=== PATIENT | male | born 1940 | race Caucasian/White ===

== ENCOUNTER 2018-07-15 19:55 | Inpatient (IN) ==
[2018-07-15] MEDS ORDERED: POLYETHYLENE (MIRALAX) 17 GM PACK PO PRN (23:20)
[2018-07-15] MEDS ORDERED: ACETAMINOPHEN 325 MG TAB PO PRN (23:20)
[2018-07-15] MEDS ORDERED: PIPERACILL/TAZOBAC CONSULT ACTIVE PRN (23:33)
[2018-07-15] MEDS ORDERED: PIPERACILLIN/TAZOBACTAM 4.5 GM in DEXTROSE 5% 100 ML IV SCH (23:45)
[2018-07-15] MEDS ORDERED: PATIENT'S HEIGHT AND/OR WEIGHT NEEDED SCH (23:45)
--- NOTE | 2018-07-16 00:28 | History & Physical Report ---
Date of Service July 16, 2018 Assessment & Plan (1) Left otitis externa: 77-year-old male with past medical history of COPD, diabetes, hypertension presents with suspected left otitis externa and Agudelo's palsy from [facility]. Left otitis externa Reviewed CT report from [place] which was only significant for nonspecific soft tissue swelling in the vicinity of the left ear Received 2 doses of Zosyn and Decadron at [place] We will continue coverage for Pseudomonas with IV Zosyn tonight, although I think the patient can be quickly transitioned to oral medications such as Cipro. Patient is also receiving Ciprodex drops in addition to IV antibiotics. Pain controlTylenol 650 every 6 Agudelo's palsy Secondary to left-sided inflammation No additional focal neuro deficits and CT was negative for signs of stroke Diabetes Holding home metformin and glipizide Ordered sliding scale insulin COPD Holding home Spiriva and Symbicort Duo nebs 4 times daily, Flovent twice daily Continue theophyllinepatient takes 200 mg twice daily Hypertension Continue HCTZ and metoprolol FEN Heart healthy diet, diabetic diet DVT prophylaxis Heparin CODE STATUS Full code without intubation (2) Agudelo's palsy: (3) HTN (hypertension): (4) Diabetes: (5) COPD (chronic obstructive pulmonary disease): History of Present Illness Primary Care Provider: NO PCP 77-year-old male with past medical history of diabetes mellitus, COPD on 2 L presents from [facility] emergency room with a suspected left ear infection and Agudelo's palsy. He describes that his symptoms started as a headache last Thursday--on the left temporal aspect and slowly progressed to pain surrounding his left ear. He states that he has had some discharge out of his left ear and muffled hearing beginning on Thursday. He has never had issues like this before, but thought he was simply experiencing a ear infection and decided to apply Neosporin ointment. Shortly before coming to the emergency room, the patient began to experience left-sided facial weakness which included difficulty blinking his left eye, trouble with fluids leaking out of his left mouth. He denies any issues with speech, strength, gait, sensation. He denies any other focal neurologic deficits. Social historylives at home with his . Patient denies smoking, alcohol use, drug use Past medical history includeshypertension, diabetes, COPD, hyperlipidemia Allergiescodeine Allergies Allergy/AdvReac Type Severity Reaction Status Date / Time codeine Allergy Unknown Verified 07/15/18 23:15 Past Med/Surg History Social History Preferred Language: Bahraini Communication Ability: Effective Outpatient Phlebotomist Required: No Beliefs That Will Affect Care: None Current Living Situation: Spouse Feels Safe at Home: Yes Safety Concerns: Feels Safe At This Time Smoking Status: Unknown if ever smoked Hx Alcohol Use: Yes Alcohol type: wine Hx Substance Use: No Physical Exam Eyes: PERRL, conjunctivae normal, anicteric sclerae ENMT: Ears: + external ear abnormality (Left external earSwelling and erythema, External canal is erythematous ) Neck: trachea midline, no thyromegaly Left cervical LAD Respiratory: normal respiratory effort, lungs clear to auscultation Cardiovascular: RRR, no murmur, no edema Gastrointestinal (Abdomen): normal bowel sounds, soft, nontender, no hepatosplenomegaly Musculoskeletal: no cyanosis or clubbing, extremities motor strength 5/5 Skin: no rashes, warm and dry Neurologic: PERRL, EOMI, accommodation nl, no face palsy, no dysarthria normal touch/pain/proprioception, moves all extremities and awake; no focal motor deficits Speech / Cognition: normal speech Psychiatric: A+Ox3, euthymic affect Results & Data Vital Signs (Past 12 Hours) Vital Signs Temp Pulse Resp BP Pulse Ox 07/15/18 23:00 36.7 C 81 18 140/71 90 Laboratory Results CBC from [place] showed WBC of 7.8, hemoglobin of 14.2, hematocrit of 42.9, platelets of 286 BMP showed sodium 139, potassium of 3.9, chloride 100, bicarbonate 30, BUN of 19, creatinine of 1.1, glucose of 140, magnesium of 1.6 ESR was [address] scan at [place] showed nonspecific soft tissue swelling in the vicinity of the left ear Supervising Physician Co-Signing Physician Notes Attending addendum: I have physically seen this patient, have supervised the medical residents activities, and agree with the H&P unless as otherwise noted. Assessment and Plan: Left otitis externa/new onset Agudelo's palsy- Received as transfer from [place] emergency department. Status post Decadron and Zosyn IV at [place] ED. Continue IV Zosyn, and add Ciprodex otic. Patient reports he has already noted significant improvement. No need for further imaging. Follow clinical examination. Neurochecks. Remainder of orders and notations as noted. Resident Activity Tracking Resident Involvement: Resident Care Provided Care Provided: [facility]
[2018-07-16] MEDS: CIPRO 0.3%/DEXAMETHASONE 0.1% OTIC SUSP 7.5ML OT SCH ×2 (00:51→08:12)
[2018-07-16] MEDS: FLUTICASONE HFA 220 MCG INHALER INH SCH ×2 (00:53→08:12)
[2018-07-16] MEDS ORDERED: GLUCOSE 10 TABS/TUBE PO PRN (03:30)
[2018-07-16] MEDS ORDERED: CARBOHYDRATES FOR HYPOGLYCEMIA PO PRN (03:30)
[2018-07-16] MEDS ORDERED: DEXTROSE 50% 50 ML SYRINGE IV PRN (03:30)
[2018-07-16] MEDS ORDERED: GLUCAGON FOR INJ 1 MG VIAL SQ PRN (03:30)
[2018-07-16] MEDS ORDERED: GLUCOSE 40% GEL 15 GM TUBE PO PRN (03:30)
[2018-07-16] MEDS ORDERED: PIPERACILLIN/TAZOBACTAM 3.375 GM in DEXTROSE 5% 100 ML IV SCH (06:00)
[2018-07-16 06:35] LABS: Basophils # (auto) 0.01 K/uL (0-0.2); Basophils % (auto) 0.2 %; Hematocrit (blood only) 37.6 % (42-52); Hemoglobin 12.8 g/dL (14.0-18.0); Immature Granulocytes # (auto) 0.02 K/uL (0.00-0.02); Immature Granulocytes % (auto) 0.4 %; Lymphocytes # (auto) 0.62 K/uL (1.2-3.4); Lymphocytes % (auto) 12.5 %; Mean Corpuscular Volume 92.4 fL (80-100); Mean Platelet Volume 10.4 fL (7.4-10.4); Neutrophils % (auto) 84.9 %; Platelet Count 239 K/uL (130-400); RDW Coefficient of Variation 13.4 % (11.5-14.5); RDW Standard Deviation 45.4 fL (36.4-46.3); Red Blood Count 4.07 M/uL (4.7-6.1); White Blood Count 4.95 K/uL (4.8-10.8)
[2018-07-16] MEDS: ALBUT/IPRATROP 3MG/0.5MG NEB 3 ML VIAL NEB SCH ×2 (06:55→11:22)
[2018-07-16 07:01] LABS: Calcium 9.2 mg/dl (8.5-10.1); Creatinine Clr Calc Pharmacy 54.9 ml/min; Est GFR (African American) 80.6; Est GFR (Non-African American) 69.6
[2018-07-16 08:00] LABS: Lyme Ab IgG w/WB Rflx Negative (Negative); Lyme Ab IgM w/WB Rflx Negative (Negative)
[2018-07-16] MEDS: INSULIN ASPART 100 UNITS/ML 3 ML PEN SC SCH ×2 (08:14→12:40)
[2018-07-16] MEDS ORDERED: THEOPHYLLINE 400 MG EXTENDED REL TAB PO SCH (09:00)
[2018-07-16] MEDS ORDERED: HEPARIN SOD 5,000 UNIT/0.5 ML VIAL SQ SCH (09:00)
[2018-07-16] MEDS ORDERED: hydroCHLOROthiazide 25 MG TAB PO SCH (09:00)
[2018-07-16] MEDS ORDERED: ROSUVASTATIN CALCIUM 10 MG TAB PO SCH (09:00)
[2018-07-16] MEDS ORDERED: METOPROLOL TARTRATE 25 MG TAB PO SCH (09:00)
[2018-07-16 10:23] LABS: Prothrombin Time 10.4 Seconds (9.0-12.0)
[2018-07-16 11:49] VITALS: BP 136/66; PULSE 86; TEMP 98.1; O2SAT 90
--- NOTE | 2018-07-16 12:06 | Discharge Summary ---
Date of Service July 16, 2018 Admission HPI Per Admitting Provider 77-year-old male with past medical history of diabetes mellitus, COPD on 2 L presents from [facility] emergency room with a suspected left ear infection and Agudelo's palsy. He describes that his symptoms started as a headache last Thursday--on the left temporal aspect and slowly progressed to pain surrounding his left ear. He states that he has had some discharge out of his left ear and muffled hearing beginning on Thursday. He has never had issues like this before, but thought he was simply experiencing a ear infection and decided to apply Neosporin ointment. Shortly before coming to the emergency room, the patient began to experience left-sided facial weakness which included difficulty blinking his left eye, trouble with fluids leaking out of his left mouth. He denies any issues with speech, strength, gait, sensation. He denies any other focal neurologic deficits. Social historylives at home with his . Patient denies smoking, alcohol use, drug use Past medical history includeshypertension, diabetes, COPD, hyperlipidemia Allergiescodeine Principal Diagnosis Otitis externa and [place] Palsy Discharge Exam Gen: alert and in no acute distress ENT: mild swelling of left outer ear, no ear discharge or otitis externa visible, no pain w/ pulling of pinna and no pain to palpation of mastoid, throat clear CN: mild droop of left lip, forehead weakness, able to close eye but unable to resist eye movements against resistance, uvula central, tongue central w/ protrusion, no facial numbness, normal shoulder shrug, Pupils equal and reactive to light, EOMI ULN: sensation and power intact LLN: sensation and power intact Cardiac: RRR, no murmurs Resp: normal vesicular breath sounds and without any wheezes rhonchi or crackles Abdomen: soft and non tender with normal bowel sounds Lower extremities: no edema Discharge Data Allergies Allergy/AdvReac Type Severity Reaction Status Date / Time codeine Allergy Unknown Verified 07/15/18 23:15 Consultations 07/15/18 23:23 Consult Case Management - Discharge Planning Routine Hospital Course (1) Left otitis externa: 77-year-old male with past medical history of COPD, diabetes, hypertension presents with suspected left otitis externa and Agudelo's palsy from [facility]. Left otitis externa Reviewed CT report from [place] which was only significant for nonspecific soft tissue swelling in the vicinity of the left ear Received 2 doses of Zosyn and Decadron at [place], received 1 dose of zosyn here Will discharge with augmentin 875mg bid for 6 days Pain controlTylenol 650 every 6hrs Agudelo's palsy Secondary to left-sided inflammation No additional focal neuro deficits and CT was negative for signs of stroke - Prednisone 50mg for 5 days on discharge - Recommend eye patch if pt experiences eye irritations Diabetes Holding home metformin and glipizide Ordered sliding scale insulin - continue home meds on discharge COPD Holding home Spiriva and Symbicort Duo nebs 4 times daily Continue theophyllinepatient takes 200 mg twice daily - continue home meds on discharge Hypertension Continue HCTZ and metoprolol FOLLOW UP WITH PCP on THURSDAY ORGANIZED BY [employer] RENTAL CLERK (2) Agudelo's palsy: (3) HTN (hypertension): (4) Diabetes: (5) COPD (chronic obstructive pulmonary disease): Total Time Total Time Spent Total Time Spent (In Minutes): <30 Discharge Plan Discharge Items Patient Disposition: Home - Self-Care Reason For Visit: SEVERE OTITIS EXTERNA Discharge Diagnosis: Bellsy Palsy, otitis externa Discharge Goals: Decrease discomfort Activity: Resume your previous activity Non-emergency contact: Primary Care Provider Call non-emergency contact if: you have any medication questions Follow-up/Referrals: Marli Escobar [Other] - 07/26/18 1:00 pm (Please, follow up at [facility] on ThursdayJuly 19 at 1:00 pm. *If you need to change this appointment, call the clinic at [phone].) Diet: Carb Consistent or DM2 Addtl Provider Instructions: You have been diagnosed with [place] Palsy and an outer ear infection. 1) [place] Palsy- we will be prescribing you with prednisone, please take 50mg for 5 days, if you notice tearing of your eye or eye irritation then please buy an eye patch from the pharmacy and use it until your symptoms have resolved 2) Outer ear infection- we will be prescribing you with augmentin which is an antibiotic. Please take this twice daily for 5 days. Please take a probiotic or eat a yogurt daily to decrease the possible side effect of diarrhea Our nurse navigator will be [facility]. If your symptoms worsen then please come back to the emergency department or got to see your PCP Please continue all your other regular home medications Prescriptions: New amoxicillin-pot clavulanate [Augmentin] 875-125 mg tablet 1 tab PO BID 5 Days Qty: 10 RF: 0 prednisone 50 mg tablet 50 mg PO DAILY 5 Days Qty: 5 RF: 0 Stand-Alone Forms: [facility] Discharge Orders: Discharge Order (Routine); Ordered 07/16/18 Ordered By: Mickey May Admission Data Admit Date/Time: 07/15/18 23:20 Attending Provider: Noam Charlton Admit Provider: Noam Charlton Primary Care Provider: Hodan Garcia Service: Medical Other Interventions: Discharge Summary Assessment (RN) Last Done: 07/16/18 12:26 DC Date/Time DO NOT enter until pt leaves facility: 07/16/18 13:09 Supervising Physician Co-Signing Physician Notes I personally examined the patient and verified all calabrese points of history and exam, discussed case, and agree with decision making with Dr May feeling better wants to go home. ear pain significantly better than yesterday vitals noted nad breathing unlabored. L ear w slight swelling of auricle, maybe dull erythema. nontender. canal clear without erythema, TM sl retracted but similar to R side and no erythema/vesicles/no bulging L face droop c/w bells palsy (forehead does not wrinkle) can close L eye fully otitis externa/auricle cellulitis - improved w abx. stable for home. wants to go home. close PCP f/u. bells palsy - prednisone, eyepatch if L eye gets dry, but looks like this will probably not be the case. PCP f/u early next week as well stable for home, otherwise as above
== END 2018-07-16 13:09 | disposition home or self-care (01) | DRG 156 ==
LOC: 2N